=== PATIENT | male | born 1985 | race Caucasian/White ===

== ENCOUNTER → 2016-10-13 | Outpatient (CLI) | payer OTHER ==
[~2016-10-13] MED LIST: NKHM; ZOFRAN ODT4 MG SL
== END | disposition home or self-care (01) ==
LOC: RAD 09:33
DX: Z02.1 Encounter for pre-employment examination (principal)

== ENCOUNTER 2020-05-17 20:06 | Emergency (ER) | payer BC ==
[~2020-05-17] VITALS: Ht 182.8 cm; Wt 108.9 kg
[2020-05-17] MEDS ORDERED: PAXIL40 M1 PO (20:14)
[2020-05-17] MEDS ORDERED: LIPITOR10 MG PO (20:14)
[2020-05-17] MEDS ORDERED: WELLBUTRIN SR100 MG PO (20:14)
[2020-05-17 20:51] LABS: BASO % 0.5 % (0.0-1.0); EOS % 0.7 % (1.0-4.0); HEMATOCRIT 47.2 % (42.0-52.0); LYMPH # 1.1 10*3/uL (1.3-4.4); LYMPH % 25.6 % (27.0-41.0); MEAN CELL VOLUME 90.4 fl (80.0-94.0); MEAN CORPUSCULAR HGB 29.9 pg (27.0-31.0); MEAN CORPUSCULAR HGB CONC 33.1 g/dl (33.0-37.0); MEAN PLATELET VOLUME 10.4 fl (9.6-12.3); MONO # 0.6 10*3/uL (0.1-1.0); MONO % 12.9 % (3.0-9.0); NEUT # 2.7 10*3/uL (2.3-7.9); NEUT % 59.8 % (47.0-73.0); PLATELET COUNT AUTOMATED 216 10*3/uL (130-400); RED BLOOD COUNT 5.22 10*6/uL (4.50-5.90); WHITE BLOOD COUNT 4.4 10*3/uL (4.8-10.8)
[2020-05-17 21:07] LABS: ALBUMIN 4.1 gm/dl (3.1-4.5); ALKALINE PHOSPHATASE 71 U/L (45-117); BUN 11 mg/dl (7-24); CHLORIDE 107 mmol/L (98-107); CREATININE 0.97 mg/dL (0.70-1.30); POTASSIUM 3.3 mmol/L (3.5-5.1); SGOT/AST 28 IU/L (3-35); SGPT/ALT 55 U/L (12-78); SODIUM 140 mmol/L (136-145); TOTAL PROTEIN 7.4 gm/dL (6.4-8.2)
[2020-05-17] MEDS ORDERED: ZITHROMAX250 MG PO (21:56)
[2020-05-17] MEDS ORDERED: DECADRON6 M1 PO (21:56)
== END 2020-05-17 22:10 | disposition home or self-care (01) ==
LOC: ED 20:06
PROVIDERS: Internal Medicine
DX: U07.1 COVID-19 (principal); R42 Dizziness and giddiness; R19.7 Diarrhea, unspecified; E87.6 Hypokalemia; R00.2 Palpitations; Z79.899 Other long term (current) drug therapy; Z98.890 Other specified postprocedural states